=== PATIENT | female | born 1990 | race Caucasian/White ===

== ENCOUNTER 2016-08-16 18:34 | Emergency (ER) | payer OTHER ==
[~2016-08-16] VITALS: Ht 152.4 cm; Wt 62.0 kg
[~2016-08-16 18:34] MED LIST: CLIN-73 PO; IBUP-1542 PO; PREN1TAB49 PO
[2016-08-16 18:38] VITALS: Ht 152.4 cm; Wt 62.0 kg
[2016-08-16] MEDS ORDERED: IBUP-1542 PO (18:50)
[2016-08-16] MEDS ORDERED: AMO500 PO (18:50)
--- NOTE | 2016-08-16 19:45 | ERD ---
ER Documentation Chief Complaint Date/Time DATE: 08/16/16 TIME: 19:41 Chief Complaint L ear pain and ST today. with nasal congestion during the morning HPI 25-year-old female presents to the ED complaining of sore throat that radiates to her left ear that started 2 days ago. Reports that she has some slight nasal congestion in the morning. 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 States that she has some odynophagia but denies any dysphagia with solids or liquids. Patient reports that this feels like when she had strep throat in the past. Denies any abdominal pain, nausea, vomiting, diarrhea, chest pain, shortness of breath, cough, rashes. Denies any smoking, alcohol use, drug use. Denies being . ROS All systems reviewed and are negative except as per history of present illness. Medications Home Meds Active Scripts Ibuprofen* (Motrin*) 600 Mg Tab, 600 MG PO Q6, #30 TAB take with food Prov:SARY BRANTLEY PA-C 08/16/16 Amoxicillin* (Amoxicillin*) 500 Mg Cap, 500 MG PO TID for 10 Days, CAP Prov:SARY BRANTLEY PA-C 08/16/16 Ibuprofen* (Motrin*) 600 Mg Tab, 600 MG PO Q6, #20 TAB Prov:DENISE HUI PA-C 12/17/14 Clindamycin Hcl* (Clindamycin Hcl*) 300 Mg Capsule, 300 MG PO TID for 10 Days, CAP Prov:DENISE HUI PA-C 12/17/14 Reported Medications Vits W-Ca,Fe,Fa(<1MG) () 1 Tab Tablet, 1 TAB PO 12/30/11 [None] No Conflict Check 01/22/11 Allergies Allergies: Coded Allergies: No Known Allergy (Verified , 12/17/14) PMhx/Soc Medical and Surgical Hx: pt denies Medical Hx, pt denies Surgical Hx History of Surgery: No Anesthesia Reaction: No Hx Neurological Disorder: No Hx Respiratory Disorders: No Hx Cardiac Disorders: No Hx Psychiatric Problems: No Hx Miscellaneous Medical Probl: No Hx Alcohol Use: No Hx Substance Use: No Hx Tobacco Use: No Smoking Status: Never smoker Physical Exam Vitals Vital Signs Date Time Temp Pulse Resp B/P Pulse Ox O2 Delivery O2 Flow Rate FiO2 08/16/16 18:38 97.3 70 20 110/57 96 Physical Exam Const: Tia-[id number]-[id number], well-nourished. In no acute distress. Head: Atraumatic, normocephalic Eyes: Normal Conjunctiva without injection. No purulent discharge. PERRL. EOMI ENT: Normal external ear. Ear canal without erythema. Tympanic membrane pearly mata without effusion or bulging. Nasal canal clear with normal turbinates. Moist oropharynx without tonsillar exudates. Non-erythematous pharynx. Uvula midline. No drooling. No trismus. Neck: Full range of motion. No meningismus. No cervical lymphadenopathy. Resp: Clear to auscultation bilaterally. No wheezing, rhonchi, rales, or crackles. No accessory muscle use. No retractions. Cardio: Regular rate and rhythm. No murmurs, rubs or gallops. Abd: Soft, non tender, non distended. Normal bowel sounds. No palpable masses. No rebound tenderness. No guarding. Skin: No petechiae or rashes Back: No midline tenderness. No CVA tenderness. Ext: No cyanosis, or edema. Neur: Awake and alert. Psych: Normal Mood and Affect Procedures/MDM This is a 25-year-old female who presents to the ED complaining of sore throat that radiates to her left ear that started 2 days ago. Patient is afebrile and nontoxic-appearing. Patient has normal vital signs. Based on Centor's criteria with erythematous posterior pharynx and edematous tonsils and no cough , patient could have presumed strep pharyngitis. patient is appropriate for outpatient antibiotics. Patient's physical exam include lungs which were clear to auscultation and a normal pulse oximetry. Bilateral ears pearly estes. No tenderness to palpation of tragus or mastoid. Low suspicion for mastoiditis, otitis externa, otitis media. Patient is speaking in full sentences. There is a low suspicion for pneumonia, epiglottitis, croup, sinusitis, peritonsillar abscess, hands foot mouth disease, Johan's angina, retropharyngeal abscess, meningitis, sepsis, acute abdomen or other emergent conditions. Discharge medications: Amoxicillin, Ibuprofen Follow up with primary care physician in 1-2 days. Instructed patient to return to the ED sooner for any worsening symptoms. Patient's questions were answered. Patient understood and agreed with discharge plan. Patient discharged stable. Departure Diagnosis: Primary Impression: Sore throat Condition: Stable Patient Instructions: Pharyngitis, Strep (Presumed) Referrals: YAMILET ARMSTRONG (PCP) [facility] YOU HAVE RECEIVED A MEDICAL SCREENING EXAM AND THE RESULTS INDICATE THAT YOU DO NOT HAVE A CONDITION THAT REQUIRES URGENT TREATMENT IN THE EMERGENCY DEPARTMENT. FURTHER EVALUATION AND TREATMENT OF YOUR CONDITION CAN WAIT UNTIL YOU ARE SEEN IN YOUR DOCTORS OFFICE WITHIN THE NEXT 1-2 DAYS. IT IS YOUR RESPONSIBILITY TO MAKE AN APPOINTMENT FOR FOLOW-UP CARE. IF YOU HAVE A PRIMARY DOCTOR --you should call your primary doctor and schedule an appointment IF YOU DO NOT HAVE A PRIMARY DOCTOR YOU CAN CALL OUR PHYSICIAN REFERRAL HOTLINE AT IF YOU CAN NOT AFFORD TO SEE A PHYSICIAN YOU CAN CHOSE FROM THE FOLLOWING [facility] [address] [facility] [email or web address] [facility] [address] [facility] [address] [facility] [address] [facility]. [facility] [address] [facility]. [facility] YOU HAVE RECEIVED A MEDICAL SCREENING EXAM AND THE RESULTS INDICATE THAT YOU DO NOT HAVE A CONDITION THAT REQUIRES URGENT TREATMENT IN THE EMERGENCY DEPARTMENT. FURTHER EVALUATION AND TREATMENT OF YOUR CONDITION CAN WAIT UNTIL YOU ARE SEEN IN YOUR DOCTORS OFFICE WITHIN THE NEXT 1-2 DAYS. IT IS YOUR RESPONSIBILITY TO MAKE AN APPOINTMENT FOR FOLOW-UP CARE. IF YOU HAVE A PRIMARY DOCTOR --you should call your primary doctor and schedule and appointment IF YOU DO NOT HAVE A PRIMARY DOCTOR YOU CAN CALL OUR PHYSICIAN REFERRAL HOTLINE AT . IF YOU CAN NOT AFFORD TO SEE A PHYSICIAN YOU CAN CHOSE FROM THE FOLLOWING [facility]: [facility] [address] [place] [address] [facility] [address] [place] [address] [facility] [address] [place] [address] [facility] Additional Instructions: Call your primary care doctor TOMORROW for an appointment during the next 2-3 days.See the doctor sooner or return here if your condition worsens before your appointment time. SARY BRANTLEY PA-C Aug 16, 2016 19:45 SARY BRANTLEY PA-C Aug 16, 2016 19:45
== END 2016-08-16 19:09 | disposition home or self-care (01) ==
LOC: FTE 18:34
DX: J02.9 Acute pharyngitis, unspecified (principal)
CPT/HCPCS: 99283

== ENCOUNTER 2016-11-25 18:37 | Emergency (ER) | payer OTHER ==
[~2016-11-25] VITALS: Ht 152.4 cm; Wt 62.5 kg
[~2016-11-25 18:37] MED LIST changes: +AMOX500C2 PO
[2016-11-25 18:51] VITALS: Ht 152.4 cm; Wt 62.5 kg
--- NOTE | 2016-12-05 18:27 | ERD ---
ER Documentation Chief Complaint Date/Time DATE: 12/05/16 TIME: 18:24 Chief Complaint sore throat since yesterday HPI 26-year-old female presents with sore throat, headache for the past 1 day. She states she has pain with swallowing, no trouble swallowing her secretions, no drooling. She reports tactile fevers. No cough, runny nose. ROS All systems reviewed and are negative except as per history of present illness. Medications Home Meds Active Scripts Ibuprofen* (Motrin*) 600 Mg Tab, 600 MG PO Q6, #30 TAB take with food Prov:SARY BRANTLEY PA-C 08/16/16 Amoxicillin* (Amoxicillin*) 500 Mg Cap, 500 MG PO TID for 10 Days, CAP Prov:SARY BRANTLEY PA-C 08/16/16 Ibuprofen* (Motrin*) 600 Mg Tab, 600 MG PO Q6, #20 TAB Prov:DENISE HUI PA-C 12/17/14 Clindamycin Hcl* (Clindamycin Hcl*) 300 Mg Capsule, 300 MG PO TID for 10 Days, CAP Prov:DENISE HUI PA-C 12/17/14 Reported Medications Vits W-Ca,Fe,Fa(<1MG) () 1 Tab Tablet, 1 TAB PO 12/30/11 [None] No Conflict Check 01/22/11 Allergies Allergies: Coded Allergies: No Known Allergy (Verified , 11/25/16) PMhx/Soc Medical and Surgical Hx: pt denies Medical Hx, pt denies Surgical Hx History of Surgery: No Anesthesia Reaction: No Hx Neurological Disorder: No Hx Respiratory Disorders: No Hx Cardiac Disorders: No Hx Psychiatric Problems: No Hx Miscellaneous Medical Probl: No Hx Alcohol Use: No Hx Substance Use: No Hx Tobacco Use: No Smoking Status: Never smoker Physical Exam Vitals See nursing note Physical Exam General: Well-developed, well-nourished. The patient appears in no acute distress. HEENT: Head is normocephalic, atraumatic. No scleral icterus. Positive exam tonsils bilaterally, no abscess. No trismus. Neck: Supple. Nontender. Lungs: Clear to auscultation. Normal air movement. Heart: Regular rate and rhythm. S1 and S2 are normal. No murmurs, gallops, or rubs. Abdomen: Nondistended. Extremities: No clubbing or cyanosis. Moving extremities x 4. No weakness. Neurologic: Alert and oriented 3. No focal deficits. Normal speech and gait. Skin: Normal turgor. No rash or lesions. Procedures/MDM 26-year-old female presents with exudate, history of fever, lack of history of cough, and will be treated for presumed strep pharyngitis. She does not have any signs of abscess, airway obstructive process. Stable for discharge. Departure Diagnosis: Primary Impression: Sore throat Condition: Good DENISE HUI PA-C Dec 05, 2016 18:27
== END 2016-11-26 01:50 | disposition home or self-care (01) ==
LOC: FTE 18:37
DX: J02.9 Acute pharyngitis, unspecified (principal)
CPT/HCPCS: 99283

== ENCOUNTER 2016-12-06 18:12 | Emergency (ER) | payer OTHER ==
[~2016-12-06] VITALS: Ht 152.4 cm; Wt 63.0 kg
[~2016-12-06 18:12] MED LIST changes: +AMO500 PO; -AMOX500C2 PO
[2016-12-06 18:44] VITALS: Ht 152.4 cm; Wt 63.0 kg
--- NOTE | 2016-12-06 19:48 | ERD ---
ER Documentation Chief Complaint Date/Time DATE: 12/06/16 TIME: 19:45 Chief Complaint vaginal pain HPI 26 year old comes in with external vaginal pain for the past 2 days with slight drainage, also comes in with vaginal discharge that is green colored and odor. She also comes in with possible condom that she was not able to find after intercourse a week ago. She does not have any vaginal odor, bleeding, pain. She has no fevers or chills. She states she is currently sexually active with her boyfriend and reports she was also sexually active with a different male partner a week ago. ROS All systems reviewed and are negative except as per history of present illness. Medications Home Meds Active Scripts Acyclovir* (Acyclovir*) 200 Mg Capsule, 200 MG PO 5 TIMES DAILY for 10 Days, CAP Prov:DENISE HUI PA-C 12/06/16 Acyclovir* (Acyclovir*) 400 Mg Tablet, 400 MG PO TID for 7 Days, TAB Prov:DENISE HUI PA-C 12/06/16 Metronidazole* (Flagyl*) 500 Mg Tablet, 500 MG PO TID for 7 Days, TAB Prov:DENISE HUI PA-C 12/06/16 Ibuprofen* (Motrin*) 600 Mg Tab, 600 MG PO Q6, #30 TAB take with food Prov:SARY BRANTLEY PA-C 08/16/16 Amoxicillin* (Amoxicillin*) 500 Mg Cap, 500 MG PO TID for 10 Days, CAP Prov:SARY BRANTLEY PA-C 08/16/16 Ibuprofen* (Motrin*) 600 Mg Tab, 600 MG PO Q6, #20 TAB Prov:DENISE HUI PA-C 12/17/14 Clindamycin Hcl* (Clindamycin Hcl*) 300 Mg Capsule, 300 MG PO TID for 10 Days, CAP Prov:DENISE HUI PA-C 12/17/14 Reported Medications Vits W-Ca,Fe,Fa(<1MG) () 1 Tab Tablet, 1 TAB PO 12/30/11 [None] No Conflict Check 01/22/11 Allergies Allergies: Coded Allergies: No Known Allergy (Verified , 12/06/16) PMhx/Soc Medical and Surgical Hx: pt denies Medical Hx, pt denies Surgical Hx History of Surgery: No Anesthesia Reaction: No Hx Neurological Disorder: No Hx Respiratory Disorders: No Hx Cardiac Disorders: No Hx Psychiatric Problems: No Hx Miscellaneous Medical Probl: No Hx Alcohol Use: Yes Hx Substance Use: No Hx Tobacco Use: No Smoking Status: Never smoker Physical Exam Vitals See nursing note Physical Exam General: Well-developed, well-nourished. The patient appears in no acute distress. HEENT: Head is normocephalic, atraumatic. No scleral icterus. Neck: Supple. Nontender. Lungs: Clear to auscultation. Normal air movement. Heart: Regular rate and rhythm. S1 and S2 are normal. No murmurs, gallops, or rubs. Abdomen: Soft, nontender, nondistended. Bowel sounds are normoactive. : Frothy green discharge, positive fishy odor, there is no evidence of condom foreign body. There are vesicular lesions on the right external labia Extremities: No clubbing or cyanosis. Normal pulses. Moving extremities x 4. No weakness. Neurologic: Alert and oriented 3. No focal deficits. Skin: Normal turgor. No rash or lesions. Results 24 hrs urine preg: NEG Procedures/MDM 26-year-old female presents with PID, she presents with green frothy discharge, and was treated with Rocephin, azithromycin, and she will be given Flagyl to go home with. Patient will also be treated for first-time HSV infection she states she has never had this lesion before. No systemic complaints, no fevers or chills. She was given ER return precautions, otherwise follow-up with her primary care doctor for other STD testing including HIV testing, and Pap smear. Departure Diagnosis: Primary Impression: PID (acute pelvic inflammatory disease) Additional Impression: Herpes genitalis Condition: DENISE Mcbride PA-C Dec 06, 2016 19:48
[2016-12-06] MEDS ORDERED: AZITHROMYCIN 250 MG TAB PO ONE (20:30)
[2016-12-06] MEDS ORDERED: CEFTRIAXONE 250 MG INJ IM ONE (20:30)
[2016-12-06] MEDS ORDERED: LIDOCAINE 1% (MDV) 20 ML INJ IM ONE (20:30)
[2016-12-06] MEDS ORDERED: ACYC400T2 PO (20:39)
[2016-12-06] MEDS ORDERED: METR500T PO (20:39)
[2016-12-06] MEDS ORDERED: ACYC200C2 PO (20:39)
== END 2016-12-06 21:17 | disposition home or self-care (01) ==
LOC: FTE 18:12 → UNDOADMIN 18:31 → MS4 18:31 → FTE 21:17
DX: N73.0 Acute parametritis and pelvic cellulitis (principal); A60.09 Herpesviral infection of other urogenital tract
CPT/HCPCS: 36415; 96372; J0696; Z7502; Z7610

== ENCOUNTER 2017-02-12 19:04 | Emergency (ER) | payer OTHER ==
[~2017-02-12] VITALS: Ht 152.4 cm; Wt 59.9 kg
[~2017-02-12 19:04] MED LIST changes: +ACYC200C2 PO; -AMO500 PO; +AMOX500C2 PO; +METR500T PO
[2017-02-12 19:32] VITALS: Ht 152.4 cm; Wt 59.9 kg
--- NOTE | 2017-02-12 22:17 | ERD ---
ER Documentation Chief Complaint Date/Time DATE: 02/12/17 TIME: 22:16 Chief Complaint LEFT EARACHE SINCE YESTERDAY. DENIES COUGH OR FEVER HPI This is a 26-year-old female who presents to the emergency room for evaluation of left-sided ear pain. The patient states that she started pain for 24 hours and states that she had this once last year was diagnosed with an ear infection. She did say she took amoxicillin and was feeling better. She denies any fevers associated with this at this time. She denies any trauma to the ear, denies swimming. ROS All systems reviewed and are negative except as per history of present illness. Medications Home Meds Active Scripts Acyclovir* (Acyclovir*) 200 Mg Capsule, 200 MG PO 5 TIMES DAILY for 10 Days, CAP Prov:DENISE HUI PA-C 12/06/16 Metronidazole* (Flagyl*) 500 Mg Tablet, 500 MG PO TID for 7 Days, TAB Prov:DENISE HUI PA-C 12/06/16 Ibuprofen* (Motrin*) 600 Mg Tab, 600 MG PO Q6, #30 TAB take with food Prov:SARY BRANTLEY PA-C 08/16/16 Amoxicillin* (Amoxicillin*) 500 Mg Cap, 500 MG PO TID for 10 Days, CAP Prov:SARY BRANTLEY PA-C 08/16/16 Ibuprofen* (Motrin*) 600 Mg Tab, 600 MG PO Q6, #20 TAB Prov:DENISE HUI PA-C 12/17/14 Clindamycin Hcl* (Clindamycin Hcl*) 300 Mg Capsule, 300 MG PO TID for 10 Days, CAP Prov:DENISE HUI PA-C 12/17/14 Reported Medications Vits W-Ca,Fe,Fa(<1MG) () 1 Tab Tablet, 1 TAB PO 12/30/11 [None] No Conflict Check 01/22/11 Allergies Allergies: Coded Allergies: No Known Allergy (Verified , 02/12/17) PMhx/Soc History of Surgery: No Anesthesia Reaction: No Hx Neurological Disorder: No Hx Respiratory Disorders: No Hx Cardiac Disorders: No Hx Psychiatric Problems: No Hx Miscellaneous Medical Probl: No Hx Alcohol Use: Yes Hx Substance Use: No Hx Tobacco Use: No Physical Exam Vitals Vital Signs Date Time Temp Pulse Resp B/P Pulse Ox O2 Delivery O2 Flow Rate FiO2 02/12/17 19:32 98.8 82 5 119/72 97 Physical Exam Const: No acute distress Head: Atraumatic Eyes: Normal Conjunctiva ENT: Left tympanic membrane erythematous and bulging, right tympanic membrane within normal limits, no mastoid bone tenderness normal External Ears, Nose and Mouth. Neck: Full range of motion..~ No meningismus. Resp: Clear to auscultation bilaterally Cardio: Regular rate and rhythm, no murmurs Abd: Soft, non tender, non distended. Normal bowel sounds Skin: No petechiae or rashes Back: No midline or flank tenderness Ext: No cyanosis, or edema Neur: Awake and alert Psych: Normal Mood and Affect Procedures/MDM 26-year-old female presents to the emergency room for evaluation of left ear pain. Patient was found to have erythematous left tympanic membrane and likely has otitis media. She will be discharged home with a prescription for amoxicillin at this time. Departure Diagnosis: Primary Impression: Acute otitis media, left Condition: Stable FRANK GARNER DO Feb 12, 2017 22:17
[2017-02-12] MEDS ORDERED: AMOX500C2 PO (22:18)
[2017-02-12 22:33] VITALS: BP 122/71; PULSE 83; RESP 20; TEMP 98.5
== END 2017-02-12 22:33 | disposition home or self-care (01) ==
LOC: FTE 19:04
DX: H66.92 Otitis media, unspecified, left ear (principal)
CPT/HCPCS: 99283